=== PATIENT | male | born 1985 | race Caucasian/White ===

== ENCOUNTER 2018-06-21 17:28 | Emergency (ER) | payer SELFPAY ==
[~2018-06-21] VITALS: Ht 160 cm; Wt 90.0 kg
[2018-06-21 17:52] VITALS: BP 112/57; PULSE 71; RESP 16; Ht 160 cm; Wt 90.0 kg
[2018-06-21] MEDS ORDERED: KETOROLAC 60 MG INJ IM STA (18:26)
[2018-06-21] MEDS ORDERED: HYDROCODONE/APAP (10/325) TAB PO ONE (18:30)
[2018-06-21] MEDS ORDERED: DIAZEPAM 5 MG TAB PO ONE (18:30)
[2018-06-21] MEDS ORDERED: CYCL10TA7 PO (19:32)
[2018-06-21] MEDS ORDERED: NAPR-985 PO (19:32)
[2018-06-21] MEDS ORDERED: HYDR-4011 PO (19:32)
--- NOTE | 2018-06-21 19:48 | ERD ---
ER Documentation Chief Complaint Chief Complaint R-LOWER BACK INJURY S/P FALL AFTER MOVING ITEMS AT WORK HPI This is a 33-year-old male with a nonsignificant past medical history presents E D with complaints of right sided lower back pain status post fall at work earlier today. Patient states that around 1 PM he fell roughly from 10-14 feet off a ladder landing on his right low back. Patient states that he initially did not have any pain and he finished out the remaining hours of the shift. Patient states that after he got home he started to notice some painful range of motion and decreased range of motion due to the pain. Patient admits to radiation of right lower back pain down right posterior leg. Admits to some difficulty ambulating due to the pain. Patient did not strike head with this fall and had no loss of consciousness. Patient denies lack of sensation, fever, chills, saddle paresthesias, bowel/bladder incontinence. Denies headache, blurry vision, changes in vision, abdominal pain, chest pain, shortness of breath, headache, worst headache of life and all other symptoms. No history of IV drug abuse ROS All systems reviewed and are negative except as per history of present illness. Medications Home Meds Active Scripts Naproxen* (Naprosyn*) 500 Mg Tablet, 500 MG PO BID PRN for PAIN AND/OR INFLAMMATION, #30 TAB Prov:FLORA LACY PA-C 06/21/18 Cyclobenzaprine Hcl* (Cyclobenzaprine Hcl*) 10 Mg Tablet, 10 MG PO TID, #15 TAB Prov:FLORA LACY PA-C 06/21/18 Hydrocodone/Acetaminophen ([place] 5-325 Tablet) 1 Each Tablet, 1 TAB PO Q6H PRN for PAIN, #7 TAB Prov:FLORA LACY PA-C 06/21/18 Allergies Allergies: Coded Allergies: No Known Allergy (Unverified , 06/21/18) PMhx/Soc Medical and Surgical Hx: pt denies Medical Hx, pt denies Surgical Hx FmHx Family History: No diabetes Physical Exam Vitals Vital Signs Date Temp Pulse Resp B/P (MAP) Pulse Ox O2 O2 Flow FiO2 Time Delivery Rate 06/21/18 99.2 71 16 112/57 98 17:52 (75) Physical Exam Physical Exam Vitals signs: Reviewed by me. General: Well developed, well nourished, in no moderate distress. Patient is awake and alert. Head: Normocephalic, atraumatic. Eyes: Normal conjunctiva, Pupils PERRLA, EOM intact grossly ENT: Pharynx is clear, Moist mucous membranes, external ears, nose and mouth normal Neck: Supple, no masses, lymphadenopathy or JVD Respiratory: Clear to auscultation bilaterally with no wheezing, rhonchi, rales, no distress Cardiovascular: RRR, no murmurs, rubs, or gallops Abdominal: Soft, non-tender, non-distended, no peritoneal signs : Deferred MSK: No edema, no unilateral swelling, 5/5 strength Back: No midline tenderness. No flank tenderness, no thoracic or lumbar midline tenderness, there is moderate tenderness palpation along the paravertebral muscles in the right lumbar spine, no step-off deformities, positive straight leg raise on right hand side. Neurologic: Alert and oriented, moving all extremities, normal speech, no focal weakness, no cerebellar signs. Normal mentation Skin: warm and dry, No rash Psych: Normal mood Results 24 hrs Current Medications Medications Dose Sig/Misael Start Time Status Last (Trade) Ordered Route PRN Stop Time Admin Dose Reason Admin 1 tab ONCE ONCE 06/21/18 DC 06/21/18 Acetaminophen PO 18:30 18:36 / 06/21/18 18:31 Hydrocodone Bitart ([place] (10/325)) Diazepam 5 mg ONCE ONCE 06/21/18 DC 06/21/18 (Valium) PO 18:30 18:36 06/21/18 18:31 Ketorolac 60 mg ONCE STAT 06/21/18 DC 06/21/18 Tromethamine IM 18:26 18:37 (Toradol) 06/21/18 18:29 Procedures/MDM EKG, MONITORS, & DIAGNOSTIC IMAGING: [place] [id number] Radiology Main Line: [phone] DIAGNOSTIC IMAGING REPORT Patient: ANNA BARTH : 1985 Age: 33 Sex: M MR #: [id number] DOS: 06/21/18 1826 Ordering MD: FLORA LACY PA-C Location: [facility] Room/Bed: PROCEDURE: CT L-Spine. CLINICAL INDICATION: 33-year-old male. Fell 14 feet, landing on right side of low back. Acute trauma. Low back pain. TECHNIQUE: A CT of the lumbar spine was performed on a multi-slice CT scanner utilizing high-resolution thin section axial images from the thoracic lumbar junction through the lumbar sacral junction. One or more the following dose reduction techniques were utilized: Automated exposure control, adjustment of the mA/ or kV according to patient's size, or use of iterative reconstruction technique. Sagittal and coronal and multiplanar reformatted images were made. DICOM images are available for review. The CTDIvol is 17.61 mGy and the DLP is 534.09 mGy.cm. COMPARISON: None FINDINGS: Lumbar vertebral body height is maintained. No endplate fracture. No spondylolisthesis. No spondylolysis. Normal lordosis. Visualized sacrum is intact. T12-L1: Disc space height maintained. No canal stenosis or foraminal narrowing. L1-2: Disc space height maintained. No canal stenosis or foraminal narrowing. L2-3: Disc space height maintained. Mild canal stenosis. No significant foraminal narrowing. L3-4: Disc space height maintained. Mild canal stenosis. No significant foraminal narrowing. L4-5: Disc space height maintained. Diffuse posterior disc extrusion, slightly larger to the right of midline. Mild to moderate canal stenosis. Potential compression of the traversing left and right L5 roots at the level of the lateral recesses. There is also potential encroachment upon the exiting L4 root within the left neural foramen. L5-S1: Mild disc space narrowing. Chronic diffuse posterior spur/disc complex w ith mild to moderate canal stenosis. No significant foraminal narrowing. IMPRESSION: 1. No acute lumbar spine fracture. Visualized sacrum intact. 2. Diffuse L4-5 posterior disc extrusion resulting in mild to moderate canal stenosis, potential encroachment upon the exiting left L4 root and traversing left and right L5 roots. Age of the disc extrusion is uncertain. 3. Chronic diffuse L5 S and posterior spur/disc complex resulting and mild to moderate canal stenosis. RPTAT: [facility] Marco Lozano Physician Date Time Electronically viewed and signed by Marco Lozano Physician on 06/21/2018 19:24 RS/ CC: FLORA LACY PA-C [id number] ER COURSE: The patient was given [place], Valium, Toradol The medication was well tolerated and the patient reports improvement in symptoms. The patient was stable throughout ED course. I kept the patient and/or family informed of laboratory and diagnostic imaging results throughout the emergency room course. The patient was promptly evaluated and a treatment plan was devised based on H&P and other data. This plan was discussed with the patient who agreed and had no further questions or concerns prior to discharge. MEDICAL DECISION MAKIN-year-old male presents to ED with right low back injury that occurred status post fall at work earlier today. CT of the lumbar spine shows no fracture. There is some disc extrusion seen on CT as well as some spinal stenosis which is likely chronic. Given mechanism injury and area of pain this is likely a muscle related pain, there is also some lumbar radiculopathy. Patient states that he does have pain with ambulation but has no weakness. Will give patient crutches to aid with ambulation. There are no distracting injuries or evidence of significant internal organ injury. History and physical examination other data not consistent with processing including cauda equina syndrome, cord compression, infiltrative etiology, infectious etiology, epidural abscess, fracture, obstructive pyelonephritis, abdominal aortic aneurysm. Vitals are stable and patient can be managed outpatient with close follow-up. Advised patient to follow up with primary care in the next 48 hours. return to ED with any worsening symptoms Discussed case and findings withDr. lu and she agrees that patient can be managed with close outpatient follow-up DISPOSITION PLAN: We discussed follow up with the patient's primary care doctor within 24 to 48 hours. Patient counseled regarding my diagnostic impression and care plan. Prior to discharge all questions answered. Pt agrees with treatment plan and understands strict return precautions. Precautionary instructions provided incl uding instructions to return to the ER if not improving or for any worsening or changing symptoms or concerns. SPECIALIST FOLLOW UP RECOMMENDED: None Patient has been advised to follow up with primary care in 1-2 days. Disclaimer: Inadvertent spelling and grammatical errors are likely due to EHR/dictation software use and do not reflect on the overall quality of patient care. Also, please note that the electronic time recorded on this note does not necessarily reflect the actual time of the patient encounter. Departure Diagnosis: Primary Impression: Injury of back Encounter type: initial encounter Qualified Codes: S39.92XA - Unspecified injury of lower back, initial encounter Additional Impression: Low back pain Chronicity: acute Back pain laterality: right Sciatica presence: with sciatica Sciatica laterality: sciatica of right side Qualified Codes: M54.41 - Lumbago with sciatica, right side Condition: Stable Patient Instructions: Back Sprain/Strain, Back Pain W/ Sciatica Referrals: [facility] YOU HAVE RECEIVED A MEDICAL SCREENING EXAM AND THE RESULTS INDICATE THAT YOU DO NOT HAVE A CONDITION THAT REQUIRES URGENT TREATMENT IN THE EMERGENCY DEPARTMENT. FURTHER EVALUATION AND TREATMENT OF YOUR CONDITION CAN WAIT UNTIL YOU ARE SEEN IN YOUR DOCTORS OFFICE WITHIN THE NEXT 1-2 DAYS. IT IS YOUR RESPONSIBILITY TO MAKE AN APPOINTMENT FOR FOLOW-UP CARE. IF YOU HAVE A PRIMARY DOCTOR --you should call your primary doctor and schedule an appointment IF YOU DO NOT HAVE A PRIMARY DOCTOR YOU CAN CALL OUR PHYSICIAN REFERRAL HOTLINE AT IF YOU CAN NOT AFFORD TO SEE A PHYSICIAN YOU CAN CHOSE FROM THE FOLLOWING [facility] [address] [facility]. [facility] [address] [facility]. [facility] [address] [facility] [facility] [address] [facility]. [facility] [address] [facility]. [facility]. [address] Additional Instructions: Patient advised to return to the ED immediately for new or worsening symptoms. Patient advised to follow up with primary care provider in the next 24-48 hours. Patient verbalized understanding and agrees with treatment plan and course of action. If patient has no primary care they may follow up with one of the critical access hospital clinics listed on the following page or one of the options listed below [facility] + [address] [address] or [facility] [address] [place] [address] or [facility] [address] [place] [address] FLORA LACY PA-C Jun 21, 2018 19:48
== END 2018-06-21 19:52 | disposition home or self-care (01) ==
LOC: FTE 17:28
DX: S39.92XA Unspecified injury of lower back, initial encounter (principal); W11.XXXA Fall on and from ladder, initial encounter; Y92.89 Other specified places as the place of occurrence of the external cause
CPT/HCPCS: 72131; 96372; 99285; J1885